=== PATIENT | female | born 2000 | race Caucasian/White ===

== ENCOUNTER 2024-08-11 18:21 | Emergency (ER) | payer BC ==
[~2024-08-11] VITALS: Ht 160 cm; Wt 75.0 kg
[2024-08-11 18:29] VITALS: TEMP 98.7
[2024-08-11 19:28] LABS: PH 6.5 (5.0-8.5); URINE APPEARANCE CLOUDY (CLEAR/HAZY); URINE BLOOD NEGATIVE (NEGATIVE); URINE COLOR YELLOW (YELLOW); URINE GLUCOSE NEGATIVE (NEGATIVE); URINE KETONE TRACE (NEGATIVE); URINE NITRATE NEGATIVE (NEGATIVE); URINE PROTEIN(semi-quant) TRACE (NEGATIVE)
[2024-08-11 19:35] LABS: COLLECTION METHOD CLEAN CATCH
[2024-08-11 20:32] LABS: BASO # 0.1 K/mm3 (0.0-0.2); BASO % 0.6 % (0.0-2.0); EOS # 0.1 K/mm3 (0.0-0.7); EOS % 1.1 % (0.0-4.0); GRAN # 5.5 K/mm3 (1.4-6.5); GRAN % 65.7 % (42.2-75.2); HEMATOCRIT 42.1 % (37.0-47.0); HEMOGLOBIN 14.4 g/dl (12.5-16.0); LYMPH % 23.8 % (20.0-51.0); MEAN CELL VOLUME 84 fl (80.0-100.0); MEAN CORPUSCULAR HEMOGLOBIN 29 pg (27-31); MEAN CORPUSCULAR HGB CONC 34 g/dl (33.0-37.0); MEAN PLATELET VOLUME 9.9 fl (7.4-10.4); MONO # 0.7 K/mm3 (0.1-0.6); MONO % 8.7 % (1.7-9.3); PLATELET COUNT 304 K/mm3 (130-400); RED BLOOD COUNT 4.99 M/mm3 (4.10-5.30); REDCELL DISTRIBUTION WIDTH-CV 12.9 % (11.5-14.5)
[2024-08-11 20:53] LABS: ALBUMIN 3.8 g/dL (3.5-5.0); BILIRUBIN,TOTAL 0.2 mg/dL (0.2-1.2); C-REACTIVE PROTEIN 0.34 mg/dL (0.00-0.50); CALCIUM 9.7 mg/dL (8.4-10.2); CREATININE, serum 0.75 mg/dL (0.57-1.11); POTASSIUM 3.8 mEq/L (3.5-4.5); TOTAL PROTEIN 7.1 g/dl (6.2-8.1)
[2024-08-11 21:21] VITALS: BP 120/77; PULSE 87
== END 2024-08-11 21:26 | disposition home or self-care (01) ==
LOC: COL.ER 18:21
PROVIDERS: Nurse Practitioner
DX: R10.9 Unspecified abdominal pain (principal); Z87.42 Personal history of other diseases of the female genital tract

== ENCOUNTER → 2024-08-12 | Outpatient (CLI) | payer BC | LOC: COL.RAD 05:52 | DX: R10.9 Unspecified abdominal pain (principal) ==